=== PATIENT | male | born 1980 | race Caucasian/White ===

== ENCOUNTER 2017-06-20 04:31 | Inpatient (IN) | payer BC, OTHER ==
[2017-06-20] MEDS ORDERED: LOPRESSOR 5 MG/5 ML INJECTION IV ONE ×2 (04:43→04:49)
[2017-06-20] MEDS ORDERED: Sodium Chloride 0.9% 1000 ML 1,000 ML IV SCH (04:45)
[2017-06-20] MEDS ORDERED: Ativan 2 MG/1 ML VIAL IV ONE (04:45)
[2017-06-20 04:48] LABS: Eosinophil % 3.3 % (0.00-5.0); Lymphocytes % 28.3 % (24.0-44.0); Mean Cell Volume 84.6 fl (78-100); Mean Corpuscular Hemoglobin 29.2 pg (26-32); Mean Platelet Volume 10.7 fl (6-9.5); Monocytes % 7.4 % (0.0-12.0); Platelet Count 204 K/mm3 (150-450); Red Blood Count 5.85 M/mm3 (4.1-5.6); White Blood Count 6.9 K/mm3 (4.0-10.5)
[2017-06-20] MEDS ORDERED: Ativan 2 MG/1 ML VIAL ONE (04:49)
--- NOTE | 2017-06-20 04:51 | ERPHSYRPT ---
- History of Present Illness Time Seen by Provider: 06/20/17 04:41 Source: patient, family Exam Limitations: no limitations Patient Subjective Stated Complaint: pt states at 2300 last night he was playing a game on his computer when he became short of breath -was then able to go to sleep and then again she am he is short of breath denies pain denies numbness or tingling pos diaphoretic Triage Nursing Assessment: pt is awake and alert and able to answer questions apprears anxious and states she can't get a deep breath although he is speaking in full sentences Physician History: patient developed SOB and couldn't catch his breath while playing a computer game tonight; lasted about 30 min; resolved and then returned; no prior hx; no CP ; no trauma; no travel; no N&V some palpatations; no syncope; no fever or sore throat; no medical hx; enies excess caffeine; no stress; denies drugs or alcohol; otherwise healthy; can't take a deep breath; no cough; no leg pain; sleeping and eating ok Timing/Duration: today (x 1 hr), yesterday (11 pm x 30 min), intermittent, sudden, worse Activities at Onset: activity (playing computer game) Severity of Dyspnea-Max: severe Severity of Dyspnea-Current: severe Possible Cause: no prior episodes (before today) Modifying Factors: Improves With: other (playing computer game) Associated Symptoms: intermittent, heart racing International travel in last 2 weeks: No Allergies/Adverse Reactions: No Known Drug Allergies Allergy (Unverified 06/20/17 04:46) Home Medications: No Reportable Medications [No Reported Medications] 06/20/17 [History] - Review of Systems Constitutional: No Symptoms Eyes: No Symptoms Ears, Nose, & Throat: No Symptoms Respiratory: Dyspnea, No Cough, No Cyanosis, No Wheezing Cardiac: Chest Pain, Palpitations, No Edema, No Syncope Abdominal/Gastrointestinal: No Abdominal Pain, No Nausea, No Vomiting, No Diarrhea Genitourinary Symptoms: No Symptoms Musculoskeletal: No Symptoms Skin: No Symptoms Neurological: No Symptoms Psychological: No Symptoms Endocrine: No Symptoms Hematologic/Lymphatic: No Symptoms Immunological/Allergic: No Symptoms - Past Medical History Pertinent Past Medical History: No Cardiac History: No Pertinent History Respiratory History: No Pertinent History GI Medical History: No Pertinent History History: No Pertinent History Psycho-Social History: No Pertinent History - Past Surgical History Past Surgical History: No - Social History Smoking Status: Current every day smoker Exposure to second hand smoke: Yes Alcohol Use: Socially Drug Use: none Patient Lives Alone: No Significant Family History: no pertinent family hx - Nursing Vital Signs Nursing Vital Signs: Initial Vital Signs Pulse Rate 112 H 06/20/17 04:40 Respiratory Rate 24 06/20/17 04:40 Blood Pressure 160/130 06/20/17 04:40 O2 Sat by Pulse Oximetry 99 06/20/17 04:40 Pain Scale Pain Intensity 0 - Physical Exam General Appearance: moderate distress, alert, anxiety Eye Exam: PERRL/EOMI, eyes nml inspection, No photophobia Ears, Nose, Throat Exam: hearing grossly normal, normal ENT inspection, normal pharynx, No nasal congestion Neck Exam: normal inspection, non-tender, supple, full range of motion, No meningismus, No carotid bruit, No JVD, No thyromegaly Respiratory Exam: lungs clear, respiratory distress (tachypnea; shallow respirations), airway intact, diminished breath sounds, other (shallow rapid respirations), No chest tenderness, No crackles/rales, No rhonchi, No wheezing, No pleural rub Cardiovascular/Chest Exam: normal heart sounds, regular rate/rhythm, normal peripheral pulses, tachycardia (114), No murmur, No edema, No JVD Abdominal/Gastrointestinal Exam: soft, normal bowel sounds, No tenderness, No mass, No guarding, No rebound, No organomegaly Rectal Exam: deferred Extremity Exam: non-tender, normal range of motion, normal inspection, normal capillary refill, no calf tenderness, no pedal edema Peripheral Pulses Exam: carotid (R): 4+, carotid (L): 4+, femoral (R): 4+, femoral (L): 4+, dorsalis-pedis (R): 3+, dorsalis-pedis (L): 3+ Neurologic Exam: alert, oriented x 3, cooperative, fruit preserver II-XII nml as tested, nml cerebellar function, nml station & gait, sensation nml, No normal mood/ affect (anxious and hyperventilation) Skin Exam: normal color, warm, No dry (clammy), No rash, No petechiae, No cyanosis Lymphatic Exam: No adenopathy SpO2 Interpretation: normal SpO2: 94 Oxygen Delivery: Room Air - Course Nursing assessment & vital signs reviewed: Yes EKG Interpreted by Me: RATE (111), Sinus Tach, Right [place] Deviation, NORMAL INTERVALS, Right Bundle Branch Block (incomplete), NORMAL ST-T, Other (poor R wave progression V1-V4) Rhythm Strip: Rate (112), Sinus Tachycardia - Radiology Exams Chest X-ray Interpretation: Interpreted by me, No Pneumothorax, Nml Heart Size, Infiltrates (bilateral interstitial patchy R>L) Ordered Tests: Active Orders 24 hr Category Date Time Status Bedrest ROUTINE Activity 06/20/17 06:41 Ordered Up With Assistance TOLERATED Activity 06/20/17 06:41 Ordered Admission/Status Order ROUTINE Care 06/20/17 06:42 Ordered Call Admit Doctor for Orders ROUTINE Care 06/20/17 06:41 Ordered Entry Level Truck Driver STAT Care 06/20/17 04:41 Active Clean Catch Urine Specimen STAT Care 06/20/17 06:37 Active Code Status Order ROUTINE Care 06/20/17 06:42 Ordered EKG-ER Only STAT Care 06/20/17 04:41 Active EKG-ER Only STAT Care 06/20/17 06:27 Active IV Care Q6H Care 06/20/17 06:42 Ordered IV Insertion STAT Care 06/20/17 04:41 Active IV Insertion-2nd Peripheral STAT Care 06/20/17 05:33 Active Implement CHF Pathway ROUTINE Care 06/20/17 06:42 Ordered Oxygen-ED Only NASAL CANNULA 2 lpm Care 06/20/17 06:08 Active Pulse Oximetry (ED) STAT Care 06/20/17 04:41 Active Telemetry ROUTINE Care 06/20/17 06:41 Ordered Weight,Daily 0600 Care 06/20/17 06:42 Ordered Low Sodium Diet 06/20/17 Breakfast Ordered CHEST 1 VIEW (PORTABLE) Stat Exams 06/20/17 04:41 Taken CHEST WITH CONTRAST [CT] Stat Exams 06/20/17 05:18 Taken ECHO W/2D AND DOPPLER [US] Routine Exams 06/20/17 06:44 Ordered ARTERIAL BLOOD GASES Stat Lab 06/20/17 05:08 Completed BLOOD CULTURE Stat Lab 06/20/17 05:28 Received BMP AM.LAB Lab 06/21/17 04:00 Ordered CBC AM.LAB Lab 06/21/17 04:00 Ordered CBC W DIFF Stat Lab 06/20/17 04:48 Completed CMP Stat Lab 06/20/17 04:48 Completed D-DIMER QUANTITATION Stat Lab 06/20/17 04:48 Completed Lactic Acid Stat Lab 06/20/17 05:08 Completed MAGNESIUM Stat Lab 06/20/17 04:48 Completed NT PRO BNP AM.LAB Lab 06/21/17 04:00 Ordered NT PRO BNP Stat Lab 06/20/17 04:48 Completed PROTIME WITH INR Stat Lab 06/20/17 04:48 Completed TROPONIN Q3H Lab 06/20/17 04:48 Completed TROPONIN Q3H Lab 06/20/17 07:45 Ordered TROPONIN Q3H Lab 06/20/17 10:45 Ordered TROPONIN Q3H Lab 06/20/17 13:45 Ordered TROPONIN Q3H Lab 06/20/17 16:45 Ordered UA W/RFX UR CULTURE Stat Lab 06/20/17 06:15 Completed Urine Triage Profile Stat Lab 06/20/17 06:15 Completed EKG IN AM RT 06/21/17 06:00 Ordered Oxygen NASAL CANNULA 2 lpm RT 06/20/17 06:42 Ordered Peak Expiratory Flow Rate ONCE RT 06/20/17 05:08 Completed Pulse Oximetry OVERNIGHT RT 06/20/17 06:44 Ordered Respiratory Nebulizer STAT RT 06/20/17 05:09 Completed Transfer Order Routine Transfer 06/20/17 06:41 Ordered Medication Summary Generic Name Dose Route Start Last Admin Trade Name Freq PRN Reason Stop Dose Admin Enoxaparin Sodium 110 mg 06/20/17 05:30 06/20/17 05:27 Enoxaparin Sodium SQ 07/20/17 05:29 110 mg Q12H BRET Administration Sodium Chloride 1,000 mls @ 100 mls/hr 06/20/17 04:45 06/20/17 05:03 Sodium Chloride 0.9% 1000 Ml IV 07/20/17 04:44 100 mls/hr .Q10H BRET Administration Discontinued Medications Generic Name Dose Route Start Last Admin Trade Name Freq PRN Reason Stop Dose Admin Albuterol/Ipratropium 3 ml 06/20/17 05:08 06/20/17 05:13 Duoneb 0.5-3 Mg/3 Ml Neb IH 06/20/17 05:09 3 ml STAT ONE Administration Albuterol/Ipratropium Confirm 06/20/17 05:11 Duoneb 0.5-3 Mg/3 Ml Neb Administered 06/20/17 05:12 Dose 3 ml IH .STK-MED ONE Aspirin 324 mg 06/20/17 06:25 06/20/17 06:33 Baby Aspirin 81 Mg Chew PO 06/20/17 06:26 324 mg STAT ONE Administration Aspirin Confirm 06/20/17 06:27 Baby Aspirin 81 Mg Chew Administered 06/20/17 06:28 Dose 324 mg .ROUTE .STK-MED ONE Captopril 25 mg 06/20/17 06:25 06/20/17 06:33 Captopril 25 Mg PO 06/20/17 06:26 25 mg STAT ONE Administration Captopril Confirm 06/20/17 06:28 Captopril 25 Mg Administered 06/20/17 06:29 Dose 25 mg .ROUTE .STK-MED ONE Lorazepam 1 mg 06/20/17 04:45 06/20/17 05:04 Ativan 2 Mg/1 Ml Vial IV 06/20/17 04:46 1 mg STAT ONE Administration Lorazepam Confirm 06/20/17 04:49 Ativan 2 Mg/1 Ml Vial Administered 06/20/17 04:50 Dose 2 mg .ROUTE .STK-MED ONE Metoprolol Tartrate 5 mg 06/20/17 04:43 06/20/17 05:04 Lopressor 5 Mg/5 Ml Injection IV 06/20/17 04:44 5 mg STAT ONE Administration Metoprolol Tartrate Confirm 06/20/17 04:49 Lopressor 5 Mg/5 Ml Injection Administered 06/20/17 04:50 Dose 5 mg IV .STK-MED ONE Nitroglycerin 1 gm 06/20/17 06:26 06/20/17 06:33 Nitro-Bid 2% Ud Packets TOP 06/20/17 06:27 1 gm STAT ONE Administration Nitroglycerin Confirm 06/20/17 06:27 Nitro-Bid 2% Ud Packets Administered 06/20/17 06:28 Dose 1 gm .ROUTE .STK-MED ONE Lab/Rad Data: Laboratory Result Diagrams 06/20/17 04:48 06/20/17 04:48 Laboratory Results 08/06/17 08/06/17 08/06/17 Range/Units 06:15 06:15 05:25 WBC (4.0-10.5) K/mm3 RBC (4.1-5.6) M/mm3 Hgb (12.5-18.0) gm/dl Hct (42-50) % MCV (78-100) fl MCH (26-32) pg MCHC (32-36) g/dl RDW (11.5-14.0) % Plt Count (150-450) K/mm3 MPV (6-9.5) fl Gran % (36.0-66.0) % Lymphocytes % (24.0-44.0) % Monocytes % (0.0-12.0) % Eosinophils % (0.00-5.0) % Basophils % (0.0-0.4) % Basophils # (0-0.4) INR (0.8-3.0) D-Dimer (0-500) ng/mL Puncture Site pCO2 (35-45) mmHg pO2 (75-100) mmHg Base Excess (-2.0-2.0) O2 Saturation (94-100) g/dF ABG pH (7.35-7.45) ABG HCO3 (22-28) ABG O2 Sat (Measured) (95-100) % Dylan Test A-a Gradient a/A Ratio Hemoglobin Carboxyhemoglobin (0.0-6.9) % THgb Methemoglobin (1.4-1.5) % Temperature C POC O2 Flow Rate % Sodium (136-145) mEq/L Potassium (3.5-5.1) mEq/L Chloride (98-107) mEq/L Carbon Dioxide (21-32) mEq/L Anion Gap (5-15) MEQ/L BUN (9-20) mg/dL Creatinine (0.55-1.30) mg/dl Estimated GFR ML/MIN Glucose (70-110) MG/DL Lactic Acid (0.4-2.0) Calcium (8.5-10.1) mg/dL Magnesium (1.8-2.4) mg/dL Total Bilirubin (0.2-1.0) mg/dL AST (15-37) U/L ALT (12-78) U/L Alkaline Phosphatase (46-116) U/L Troponin I (0.000-0.056) ng/ml NT-Pro-B Natriuret Pep (0-125) pg/ml Serum Total Protein (6.4-8.2) gm/dL Albumin (3.4-5.0) g/dL Ur Collection Type VOID Urine Color YELLOW (YELLOW) Urine Appearance CLEAR (CLEAR) Urine pH 6.0 (5-6) Ur Specific [place] 10.010 (1.005-1.025) Urine Protein NEGATIVE (Negative) Urine Ketones NEGATIVE (NEGATIVE) Urine Blood NEGATIVE (0-5) Guero/ul Urine Nitrite NEGATIVE (NEGATIVE) Urine Bilirubin NEGATIVE (NEGATIVE) Urine Urobilinogen NORMAL (0-1) mg/dL Ur Leukocyte Esterase NEGATIVE (NEGATIVE) Urine Glucose NEGATIVE (NEGATIVE) mg/dL Urine Opiates Level NEG. (NEGATIVE) Ur Methadone NEG. (NEGATIVE) Urine Barbiturates NEG. (NEGATIVE) Ur Phencyclidine (PCP) NEG. (NEGATIVE) Urine Amphetamine NEG. (NEGATIVE) U Benzodiazepine Level NEG. (NEGATIVE) Urine Cocaine NEG. (NEGATIVE) Urine Marijuana (THC) NEG. (NEGATIVE) Influenza Type A Ag NEGATIVE (NEGATIVE) Influenza Type B Ag NEGATIVE (NEGATIVE) RSV (PCR) NEGATIVE (Negative) Specimen Received 06/20/2017 0625 06/20/17 06/20/17 06/20/17 Range/Units 05:08 04:48 04:48 WBC (4.0-10.5) K/mm3 RBC (4.1-5.6) M/mm3 Hgb (12.5-18.0) gm/dl Hct (42-50) % MCV (78-100) fl MCH (26-32) pg MCHC (32-36) g/dl RDW (11.5-14.0) % Plt Count (150-450) K/mm3 MPV (6-9.5) fl Gran % (36.0-66.0) % Lymphocytes % (24.0-44.0) % Monocytes % (0.0-12.0) % Eosinophils % (0.00-5.0) % Basophils % (0.0-0.4) % Basophils # (0-0.4) INR 1.04 (0.8-3.0) D-Dimer 1614 H* (0-500) ng/mL Puncture Site LEFT BRACHIAL pCO2 30 L (35-45) mmHg pO2 75 (75-100) mmHg Base Excess -0.6 (-2.0-2.0) O2 Saturation 92.7 L (94-100) g/dF ABG pH 7.47 H (7.35-7.45) ABG HCO3 21.8 L (22-28) ABG O2 Sat (Measured) 99.1 (95-100) % Dylan Test YES A-a Gradient 37 a/A Ratio 0.67 Hemoglobin 17.2 Carboxyhemoglobin 5.6 (0.0-6.9) % THgb Methemoglobin 0.8 L (1.4-1.5) % Temperature 37.0 C POC O2 Flow Rate 21 % Sodium (136-145) mEq/L Potassium 4.0 (3.5-5.1) mEq/L Chloride (98-107) mEq/L Carbon Dioxide (21-32) mEq/L Anion Gap (5-15) MEQ/L BUN (9-20) mg/dL Creatinine (0.55-1.30) mg/dl Estimated GFR ML/MIN Glucose (70-110) MG/DL Lactic Acid 0.9 (0.4-2.0) Calcium (8.5-10.1) mg/dL Magnesium (1.8-2.4) mg/dL Total Bilirubin (0.2-1.0) mg/dL AST (15-37) U/L ALT (12-78) U/L Alkaline Phosphatase (46-116) U/L Troponin I 0.024 (0.000-0.056) ng/ml NT-Pro-B Natriuret Pep (0-125) pg/ml Serum Total Protein (6.4-8.2) gm/dL Albumin (3.4-5.0) g/dL Ur Collection Type Urine Color (YELLOW) Urine Appearance (CLEAR) Urine pH (5-6) Ur Specific [place] (1.005-1.025) Urine Protein (Negative) Urine Ketones (NEGATIVE) Urine Blood (0-5) Guero/ul Urine Nitrite (NEGATIVE) Urine Bilirubin (NEGATIVE) Urine Urobilinogen (0-1) mg/dL Ur Leukocyte Esterase (NEGATIVE) Urine Glucose (NEGATIVE) mg/dL Urine Opiates Level (NEGATIVE) Ur Methadone (NEGATIVE) Urine Barbiturates (NEGATIVE) Ur Phencyclidine (PCP) (NEGATIVE) Urine Amphetamine (NEGATIVE) U Benzodiazepine Level (NEGATIVE) Urine Cocaine (NEGATIVE) Urine Marijuana (THC) (NEGATIVE) Influenza Type A Ag (NEGATIVE) Influenza Type B Ag (NEGATIVE) RSV (PCR) (Negative) Specimen Received 06/20/17 06/20/17 Range/Units 04:48 04:48 WBC 6.9 (4.0-10.5) K/mm3 RBC 5.85 H (4.1-5.6) M/mm3 Hgb 17.1 (12.5-18.0) gm/dl Hct 49.5 (42-50) % MCV 84.6 (78-100) fl MCH 29.2 (26-32) pg MCHC 34.5 (32-36) g/dl RDW 14.0 (11.5-14.0) % Plt Count 204 (150-450) K/mm3 MPV 10.7 H (6-9.5) fl Gran % 60.0 (36.0-66.0) % Lymphocytes % 28.3 (24.0-44.0) % Monocytes % 7.4 (0.0-12.0) % Eosinophils % 3.3 (0.00-5.0) % Basophils % 1.0 (0.0-0.4) % Basophils # 0.07 (0-0.4) INR (0.8-3.0) D-Dimer (0-500) ng/mL Puncture Site pCO2 (35-45) mmHg pO2 (75-100) mmHg Base Excess (-2.0-2.0) O2 Saturation (94-100) g/dF ABG pH (7.35-7.45) ABG HCO3 (22-28) ABG O2 Sat (Measured) (95-100) % Dylan Test A-a Gradient a/A Ratio Hemoglobin Carboxyhemoglobin (0.0-6.9) % THgb Methemoglobin (1.4-1.5) % Temperature C POC O2 Flow Rate % Sodium 142 (136-145) mEq/L Potassium 3.8 (3.5-5.1) mEq/L Chloride 107 (98-107) mEq/L Carbon Dioxide 26.7 (21-32) mEq/L Anion Gap 11.7 (5-15) MEQ/L BUN 11 (9-20) mg/dL Creatinine 1.09 (0.55-1.30) mg/dl Estimated GFR > 60 ML/MIN Glucose 103 (70-110) MG/DL Lactic Acid (0.4-2.0) Calcium 8.6 (8.5-10.1) mg/dL Magnesium 1.7 L (1.8-2.4) mg/dL Total Bilirubin 0.60 (0.2-1.0) mg/dL AST 27 (15-37) U/L ALT 36 (12-78) U/L Alkaline Phosphatase 60 (46-116) U/L Troponin I (0.000-0.056) ng/ml NT-Pro-B Natriuret Pep 1618 H (0-125) pg/ml Serum Total Protein 7.0 (6.4-8.2) gm/dL Albumin 4.1 (3.4-5.0) g/dL Ur Collection Type Urine Color (YELLOW) Urine Appearance (CLEAR) Urine pH (5-6) Ur Specific [place] (1.005-1.025) Urine Protein (Negative) Urine Ketones (NEGATIVE) Urine Blood (0-5) Guero/ul Urine Nitrite (NEGATIVE) Urine Bilirubin (NEGATIVE) Urine Urobilinogen (0-1) mg/dL Ur Leukocyte Esterase (NEGATIVE) Urine Glucose (NEGATIVE) mg/dL Urine Opiates Level (NEGATIVE) Ur Methadone (NEGATIVE) Urine Barbiturates (NEGATIVE) Ur Phencyclidine (PCP) (NEGATIVE) Urine Amphetamine (NEGATIVE) U Benzodiazepine Level (NEGATIVE) Urine Cocaine (NEGATIVE) Urine Marijuana (THC) (NEGATIVE) Influenza Type A Ag (NEGATIVE) Influenza Type B Ag (NEGATIVE) RSV (PCR) (Negative) Specimen Received reviewed - Progress Progress: improved (after IV fluids, meds and duoneb ), re-examined (after meds) Air Movement: fair (after meds and duonebs), poor Progress Note: 06/20/17 05:01 IV started; EKG sinus tach with ICRBBB; CBC wnl; mildly hypertensive and tachypnic with sats 94% on RA; very anxious and hyperventilating; will medicate; CXR pending; will give duoneb and peak flow 06/20/17 05:13 recheck significant other at bedside; patient denies any travel ; was visiting a local friend with chickens; able to take slightly deeper breaths; still not able to ascertain BS well; no whisper pectoriloquiy but some EA eughophony changes; CXR shows significant bilateral patchy interstitial infiltrates R>L 06/20/17 05:17 D Dimer elevated at [address] to ro PE and treat prophylaxis for PE with Lovenox 06/20/17 05:20 06/20/17 05:28 renal function ok to proceed with CT; bs 103; BMP ok ;liver labs ok; Mg++ low at 1.7; sats dropped to 89% on RA at one point so will place on O2 after duoneb treatment; he has had the lovenox 06/20/17 05:[address]; Trop 0.024; ABG pending; Duoneb in process 06/20/17 05:53 ABG shows Ph. 7.47; pCO2 = 30; pO2 = 75 HCO3 = 21.8; HGB O2 sat = 92.7; on RA; will place on O2; Lactic acid 0.9; CT result pending 06/20/17 06:[address] and completed his Duoneb; VS improved; feeling better; moving air better; Sats improved. CT results pending; will monitor and recheck 06/20/17 06:12 pulse ox now 96% on 2 l nc;VS improved 06/20/17 06:28 CT negative for PE; but with changes suggestive of Pulmonary Edema or atypical multifocal pnuemonia; pBNP elevated at 1618; will treat with baby ASA; NTG and captopril; monnitor and recheck and consult Dr Vicente Dong for disposition He was consulted adn accepted the patient for admission Blood Culture(s) Obtained: Yes Discussed with : Mavis (consulted and will admit) Will see patient in: hospital (full admit) Counseled pt/family regarding: lab results, diagnosis, need for follow-up, rad results - Departure Time of Disposition: 06:38 Departure Disposition: In-patient Admission (ICU) Clinical Impression: CHF (congestive heart failure), Pulmonary edema cardiac cause, Elevated d-dimer , Elevated brain natriuretic peptide (BNP) level, Sinus tachycardia by electrocardiogram, Incomplete right bundle branch block (RBBB), Hypertension, possible non-stemi DE Condition: Serious Critical Care Time: Yes Critical Care Time(excluding separately billable procedures): 30-74 minutes Referrals: DOCTOR,NO FAMILY [Primary Care Provider] - ETRESSA DONG [ACTIVE STAFF] - Instructions: Heart Failure
[2017-06-20 05:08] LABS: INR 1.04 (0.8-3.0); PROTIME 11.7 SECONDS (8.83-12.87)
[2017-06-20] MEDS ORDERED: DUONEB 0.5-3 MG/3 ml Neb IH ONE ×2 (05:08→05:11)
[2017-06-20 05:24] LABS: ALBUMIN 4.1 g/dL (3.4-5.0); ALKALINE PHOSPHATASE 60 U/L (46-116); ANION GAP 11.7 MEQ/L (5-15); BLOOD UREA NITROGEN 11 mg/dL (9-20); CHLORIDE 107 mEq/L (98-107); Carbon Dioxide 26.7 mEq/L (21-32); Glucose 103 MG/DL (70-110); MAGNESIUM 1.7 mg/dL (1.8-2.4); Potassium 3.8 mEq/L (3.5-5.1); SGOT/AST 27 U/L (15-37); SGPT/ALT 36 U/L (12-78); SODIUM 142 mEq/L (136-145)
[2017-06-20] MEDS: ENOXAPARIN SODIUM SQ SCH ×2 (05:27→17:42)
[2017-06-20 05:49] LABS: A-aADO2 37; ALLEN TEST OK? YES; ARTERIAL BLD GAS O2 SATURATION 99.1 % (95-100); ARTERIAL BLOOD GAS BASE EXCESS -0.6 (-2.0-2.0); ARTERIAL BLOOD GAS FIO2 21 %; ARTERIAL BLOOD GAS PO2 75 mmHg (75-100); ARTERIAL BLOOD GAS pH 7.47 (7.35-7.45); Lactic Acid 0.9 (0.4-2.0)
[2017-06-20] MEDS ORDERED: CAPTOPRIL 25 MG PO ONE (06:25)
[2017-06-20] MEDS ORDERED: BABY ASPIRIN 81 MG CHEW PO ONE (06:25)
[2017-06-20] MEDS ORDERED: NITRO-BID 2% UD PACKETS TOP ONE (06:26)
[2017-06-20] MEDS ORDERED: BABY ASPIRIN 81 MG CHEW ONE (06:27)
[2017-06-20] MEDS ORDERED: NITRO-BID 2% UD PACKETS ONE (06:27)
[2017-06-20] MEDS ORDERED: CAPTOPRIL 25 MG ONE (06:28)
[2017-06-20 06:32] LABS: Collection Type VOID
[2017-06-20 06:33] LABS: ADD URINE CULTURE? NO (NO); Bilirubin NEGATIVE (NEGATIVE); Blood NEGATIVE Ery/ul (0-5); COMPLETE URINE MICROSCOPIC? NO; Glucose NEGATIVE (NEGATIVE); Leukocyte Esterase NEGATIVE (NEGATIVE)
[2017-06-20] MEDS ORDERED: Lasix 40 MG/4 ML ONE (06:48)
[2017-06-20] MEDS ORDERED: Lasix 20 MG/2 ML IV ONE (06:53)
[2017-06-20] MEDS ORDERED: Lasix 40 MG/4 ML IV ONE (06:54)
[2017-06-20] MEDS ORDERED: LASIX 20 MG PO SCH (10:00)
[2017-06-20] MEDS ORDERED: CAPTOPRIL 25 MG PO SCH (10:00)
[2017-06-20] MEDS: Klor Con 10 MEQ PO SCH ×3 (10:22→21:41)
[2017-06-20] MEDS: Lasix 20 MG/2 ML IV SCH ×2 (10:23→17:43)
[2017-06-20] MEDS: Lopressor 25MG Tab PO SCH ×2 (10:23→21:41)
--- NOTE | 2017-06-20 10:27 | XRAY ---
Indication: Short of breath, decreased O2 saturation, tachycardia, and elevated d-dimer. Multiple contiguous axial images obtained through the chest using 80 cc Isovue 370 contrast and PE protocol. Comparison: None There is good opacification of the pulmonary arteries. However respiration artifact limits evaluation of the segmental and more distal branches. No large central pulmonary embolus. Heart is not enlarged. Aorta is normal in course and caliber. Right hilar calcified node. No pathologic mediastinal/hilar lymphadenopathy. Examination of the lung parenchyma demonstrates mild diffuse patchy airspace opacities bilaterally, minimal bibasilar dependent atelectasis, and right lower lobe calcified granuloma. No consolidation or large effusion. Bony thorax intact. Limited upper abdomen demonstrates 13 cm splenomegaly and mild fatty liver. Impression: 1. Respiration artifact. No central pulmonary embolus. 2. Multifocal bilateral patchy airspace disease. 3. Incidental fatty liver, splenomegaly, and evidence for old granulomatous disease. Comment: Preliminary interpretation was made by [facility]. No critical discrepancy. CTDI 23.68
--- NOTE | 2017-06-20 10:29 | XRAY ---
Indication: Short of breath. Comparison: None Portable chest demonstrates mild diffuse bilateral interstitial alveolar opacities without consolidation or large effusion. Heart is not enlarged for AP portable technique. Bony thorax intact.
[2017-06-20] MEDS: Nicoderm CQ 21 MG TOP SCH (10:56)
--- NOTE | 2017-06-20 11:21 | PCM.HP ---
History of Present Illness - Chief Complaint Chief Complaint: CHF Date: 06/20/17 History of Present Illness: is a 37 year old male. He has a history of smoking 1/2 to 1 ppd of cigarretes but is otherwise healty with no previous health problems. He suddenly became short of breath yesterday evening with no pain or pressure in his chest. He laid down calmed down went to bed but awoke early this am very short of breath and presented to the ED. He was not having any chest pain and has not had any chest pain or exercise intolerence. He does not drink alcohol and has not had any recent illness. he has not had any difficulty with swelling. He has no known congenital heart problems. His father has history of coronary artery disease and htn starting in his late 50's and follows with Dr. Blanc. He has not had any travel. He had no palpitations prior to this. He sometimes takes a multivitamin but denies any other supplements. He drinks some coca-cola and Mountain Dew but no energy drinks. He denies rash, fever, chills, coughing or calf pain or tendneress. - Review of Systems Constitutional: No Fever, No Chills Eyes: No Symptoms Ears, Nose, & Throat: No Symptoms Respiratory: Orthopnea, Short Of Breath, No Cough, No Wheezing Cardiac: No Chest Pain, No Edema, No Syncope Abdominal/Gastrointestinal: No Abdominal Pain, No Nausea, No Vomiting, No Diarrhea Genitourinary Symptoms: No Dysuria Musculoskeletal: No Back Pain, No Neck Pain Skin: No Rash Neurological: No Dizziness, No Focal Weakness, No Sensory Changes Psychological: No Symptoms Endocrine: No Symptoms Hematologic/Lymphatic: No Symptoms Immunological/Allergic: No Symptoms Medications & Allergies Home Medications: Home Medication List No Reportable Medications [No Reported Medications] 06/20/17 [History Confirmed 06/20/17] Allergies/Adverse Reactions: Allergies Allergy/AdvReac Type Severity Reaction Status Date / Time No Known Drug Allergies Allergy Unverified 06/20/17 07:39 - Past Medical History Past Medical History: No Neurological History: No Pertinent History ENT History: No Pertinent History Cardiac History: No Pertinent History Respiratory History: No Pertinent History Endocrine Medical History: No Pertinent History Musculoskelatal History: No Pertinent History GI Medical History: No Pertinent History History: No Pertinent History Pyscho-Social History: No Pertinent History Male Reproductive Disorders: No Pertinent History - Past Surgical History Past Surgical History: No Neuro Surgical History: No Pertinent History Cardiac History: No Pertinent History Respiratory Surgery: No Pertinent History GI Surgical History: No Pertinent History Genitourinary Surgical Hx: No Pertinent History Musculskeletal Surgical Hx: No Pertinent History Male Surgical History: No Pertinent History - Social History Smoking Status: Current every day smoker How long have you smoked: 22 years Exposure to second hand smoke: Yes Alcohol: Rarely Drug Use: none Significant Family History: no pertinent family hx - Physical Exam Vital Signs: Vital Signs - 24 hr Temp Pulse Resp BP Pulse Ox 06/20/17 08:57 100 H 18 94 L 06/20/17 08:00 97.1 F 95 H 17 130/82 93 L 06/20/17 07:41 98.1 F 88 17 142/91 94 L 06/20/17 07:08 100 H 20 145/105 96 06/20/17 06:51 94 L 06/20/17 06:46 102 H 154/113 97 06/20/17 06:10 88 20 144/115 96 06/20/17 05:19 98.4 F 88 20 153/113 93 L 06/20/17 05:13 100 H 22 91 L 06/20/17 05:08 98.4 F 06/20/17 05:03 98 H 20 95 06/20/17 04:59 24 99 06/20/17 04:55 104 H 16 160/100 99 06/20/17 04:46 98 06/20/17 04:40 112 H 24 160/130 99 Oxygen-Last 24 hours O2 Percentage 2 Liters = 28% O2 Percentage 2 Liters = 28% O2 Percentage 2 Liters = 28% O2 Percentage 2 Liters = 28% O2 Percentage 2 Liters = 28% O2 Percentage 2 Liters = 28% General Appearance: no apparent distress, alert, obese Neurologic Exam: alert, oriented x 3, cooperative, normal mood/affect, nml cerebellar function, nml station & gait, sensation nml, No motor deficits Eye Exam: PERRL/EOMI, eyes nml inspection Ears, Nose, Throat Exam: normal ENT inspection, pharynx normal, moist mucous membranes Neck Exam: normal inspection, non-tender, supple, full range of motion Respiratory Exam: crackles/rales (bibasilar), No respiratory distress Cardiovascular Exam: regular rate/rhythm, normal heart sounds, normal peripheral pulses, No murmur, No edema Gastrointestinal/Abdomen Exam: soft, normal bowel sounds, No tenderness, No mass Back Exam: normal inspection, normal range of motion, No CVA tenderness, No vertebral tenderness Extremity Exam: normal inspection, normal range of motion, pelvis stable Skin Exam: normal color, warm, dry, No rash Lymphatic Exam: No adenopathy Results - Labs Lab/Micro Results: Lab Results-Last 24 Hours 06/20/17 Range/Units 07:39 Troponin I 0.031 (0.000-0.056) ng/ml - Radiology Impressions Radiology Exams & Impressions: Radiology Procedures Category Date Time Status ECHO W/2D AND DOPPLER [US] Routine Exams 06/20/17 07:37 Ordered - Other Procedures and Tests Respiratory Therapy 06/20/17 06:42 Oxygen NASAL CANNULA 2 lpm 06/21/17 06:00 EKG IN AM Assessment/Plan (1) CHF (congestive heart failure) Current Visit: Yes Status: Acute Assessment & Plan: new onset acute with pulmonary edema check echo nitro paste given in ed start metoprolol 25 mg bid aspirin given in ED continue daily received captopril in ED Start statin check lipids continue trend troponins ekg without ischemic changes noted X2 and no chest pain lasix 20 mg IV q6h repeat bmp this afternoon with the troponin draw check tsh monitor and control blood pressure. Discussed cardiology referral depending on echo results and clinical coarse as inpatient vs outpatient follow up. Patient's father long time patient of Dr. Blanc. Code(s): I50.9 - HEART FAILURE, UNSPECIFIED (2) Hypertension Current Visit: Yes Status: Acute Code(s): I10 - ESSENTIAL (PRIMARY) HYPERTENSION (3) Obesity Current Visit: Yes Status: Acute Code(s): E66.9 - OBESITY, UNSPECIFIED
[2017-06-20] MEDS: NITRO-BID 2% UD PACKETS TOP SCH ×3 (13:14→23:49)
[2017-06-20 14:44] LABS: ANION GAP 12.4 MEQ/L (5-15); BLOOD UREA NITROGEN 14 mg/dL (9-20); CHLORIDE 105 mEq/L (98-107); Glucose 110 MG/DL (70-110); Potassium 4.1 mEq/L (3.5-5.1); SODIUM 140 mEq/L (136-145)
[2017-06-20] MEDS: TYLENOL 325 MG PO PRN (14:49)
[2017-06-20] MEDS: NORCO 5/325 MG PO PRN (17:43)
[2017-06-20] MEDS ORDERED: ZOCOR 20MG PO SCH (22:00)
[2017-06-21] MEDS: NORCO 5/325 MG PO PRN ×2 (04:57→10:13)
[2017-06-21] MEDS: ENOXAPARIN SODIUM SQ SCH (05:01)
[2017-06-21] MEDS: NITRO-BID 2% UD PACKETS TOP SCH (05:02)
[2017-06-21 05:48] LABS: Mean Cell Volume 84.2 fl (78-100); Mean Platelet Volume 11.2 fl (6-9.5); Platelet Count 187 K/mm3 (150-450); Red Blood Count 5.31 M/mm3 (4.1-5.6); Red Cell Distribution Width 13.6 % (11.5-14.0); White Blood Count 9.8 K/mm3 (4.0-10.5)
[2017-06-21 05:49] LABS: ANION GAP 14.6 MEQ/L (5-15); BLOOD UREA NITROGEN 16 mg/dL (9-20); CHLORIDE 104 mEq/L (98-107); Carbon Dioxide 25.2 mEq/L (21-32); Cholesterol 145 mg/dL (100-200); Glucose 112 MG/DL (70-110); LDL, DIRECT 86 mg/dL (5-99); MAGNESIUM 1.5 mg/dL (1.8-2.4); Potassium 3.9 mEq/L (3.5-5.1); SODIUM 140 mEq/L (136-145); TRIGLYCERIDE 78 mg/dL (30-200)
[2017-06-21] MEDS: TYLENOL 325 MG PO PRN (08:01)
[2017-06-21] MEDS: Klor Con 10 MEQ PO SCH (09:49)
[2017-06-21] MEDS: Magnesium 1 Gm / 100 Ml D5W*** 100 ML IV SCH ×2 (09:51→10:34)
[2017-06-21] MEDS ORDERED: Lasix 20 MG/2 ML IV SCH (10:00)
[2017-06-21] MEDS ORDERED: ECOTRIN 81 MG PO SCH (10:00)
[2017-06-21] MEDS ORDERED: Lopressor 50 MG PO SCH (10:00)
[2017-06-21] MEDS: Nicoderm CQ 21 MG TOP SCH (10:23)
--- NOTE | 2017-06-21 12:51 | ECHO ---
Transthoracic echocardiographic examination and color Doppler was done on 06/21/2017. INDICATION: Shortness of breath, hypertension. IMPRESSION: 1) GLOBAL LEFT VENTRICULAR HYPOKINESIA. EJECTION FRACTION AROUND 20%. 2) MODERATELY DILATED LEFT VENTRICLE. 3) TRACE MITRAL REGURGITATION. 4) TRACE TRICUSPID REGURGITATION. RIGHT VENTRICULAR SYSTOLIC PRESSURE OF 23 MM OF MERCURY. 5) LEFT VENTRICULAR DIASTOLIC DYSFUNCTION. 6) LEFT ATRIAL ENLARGEMENT. 7) MILD LEFT VENTRICULAR HYPERTROPHY. The left ventricle is visualized and demonstrated global type of hypokinesia. Ejection fraction around 20%. There is mild left ventricular hypertrophy. The mitral valve is seen and this opens adequately. There is a low flow characteristic suggestive of low cardiac output. There is trace mitral regurgitation. Left atrium is mildly dilated. The aortic valve opens adequately. The right side chambers are normal. There is trace tricuspid regurgitation. The right ventricular systolic pressure of 23 mm of Mercury. Tissue Doppler study of the lateral mitral annulus suggestive of left ventricular diastolic dysfunction.
--- NOTE | 2017-06-21 13:17 | PCM.DCORD ---
- Discharge Discharge Date: 06/21/17 Disposition: Home, Self-Care Condition: Serious Prescriptions: New Aspirin [Aspirin EC] 81 mg PO DAILY #30 tablet. Atorvastatin Calcium 20 mg PO DAILY #30 tablet Potassium Chloride 10 Meq Tab* [Klor Con 10 MEQ] 10 meq PO DAILY #30 tab Furosemide 20 mg [Lasix 20 mg] 20 mg PO DAILY #30 tablet Metoprolol Tartrate 50 mg [Lopressor 50 MG] 50 mg PO BID #60 tablet Lisinopril 5 mg [Zestril 5 MG] 5 mg PO DAILY #30 tablet Instructions: Heart Failure Follow up with: TERESSA DONG [ACTIVE STAFF] - DOCTOR,NO FAMILY [Primary Care Provider] - Forms: Discharge Instructions
[2017-06-21 13:59] VITALS: BP 155/107; PULSE 96; O2SAT 96
--- NOTE | 2017-06-23 12:58 | PCM.DS ---
Discharge Summary Date of Admission: 06/20/17 07:30 Date of Discharge: 06/21/17 Admitting Physician: TERESSA DONG Primary Care Provider: NO FAMILY DOCTOR Allergies Allergies No Known Drug Allergies Allergy (Unverified 06/20/17 07:39) Hospital Summary - Hospital Course Hospital Course: previously healthy young man except tobacco use and smoking with no other known risk factors suddenly became short of breath the night prior to admission and worsened with laying flat. On evaluation he was positive for pulmonary edema and responded well to lasix with resolution of his symptoms. He never had chest pain. He has no recent illnesses toxins or known exposures. His troponins remained low and he was asymptomatic with significant diuresis of about 3L. He had no swelling prior to this. Echo showed EF of 20% and global hypokinesia. His father follows with Dr. Vasquze cardiology and case was discussed with him who will follow up with him as an outpatient. He was given instructions to return immediately for chest pain or worsening shortness of breath. - Vitals & Intake/Output Vital Signs: Vital Signs Temperature 97.8 F 06/21/17 13:55 Pulse Rate 96 H 06/21/17 13:55 Respiratory Rate 12 06/21/17 13:55 Blood Pressure 155/107 06/21/17 13:55 O2 Sat by Pulse Oximetry 96 06/21/17 13:55 Oxygen-Last Documented O2 Percentage 2 Liters = 28% Intake & Output: Intake & Output 06/21/17 06/22/17 06/23/17 06/24/17 11:59 11:59 11:59 11:59 Intake Total 1090 Output Total 4600 Balance -3510 Weight 117.435 kg - Lab Result Diagrams: 06/21/17 05:13 06/21/17 05:13 - Procedures and Test Procedures and Tests throughout Hospitalization: Therapy Orders & Screens 06/20/17 06:42 Oxygen NASAL CANNULA 2 lpm Comment: Diagnosis: Shortness of Breath 06/20/17 08:15 Smoking Cessation Education ONCE Comment: Diagnosis: CHF Smoking Status: Current every day smoker How long have you smoked: 22 years Have you smoked in the past 12 months: Yes Approximately how many cigarettes per day: 20 Do you dip or chew tobacco: No 06/21/17 06:00 EKG IN AM Comment: Diagnosis: Shortness of Breath Discharge Exam General Appearance: no apparent distress, alert Neurologic Exam: alert, oriented x 3, cooperative, normal mood/affect, nml cerebellar function, sensation nml, No motor deficits Skin Exam: normal color, warm, dry Eye Exam: PERRL, EOMI, eyes nml inspection Ears, Nose, Throat Exam: normal ENT inspection, pharynx normal, moist mucous membranes Neck Exam: normal inspection, non-tender, supple, full range of motion Respiratory Exam: normal breath sounds, lungs clear, No respiratory distress Cardiovascular Exam: regular rate/rhythm, normal heart sounds Gastrointestinal/Abdomen Exam: soft, No tenderness, No mass Extremity Exam: normal inspection, normal range of motion Back Exam: normal inspection, normal range of motion, No CVA tenderness, No vertebral tenderness Male Genitalia Exam: deferred Rectal Exam: deferred Final Diagnosis/Problem List - Final Discharge Diagnosis/Problem (1) CHF (congestive heart failure) Status: Acute Assessment & Plan: acute systolic congestive heart failure started asa, lisinopril, metoprolol, statin, lasix, potassium f/u recheck later this week and with Dr. Blanc as scheduled. (2) Hypertension Status: Acute (3) Obesity Status: Acute - Discharge Disposition: Home, Self-Care Condition: Serious Prescriptions: New Aspirin [Aspirin EC] 81 mg PO DAILY #30 tablet.[address] Noonan Calcium 20 mg PO DAILY #30 tablet Potassium Chloride 10 Meq Tab* [Klor Con 10 MEQ] 10 meq PO DAILY #30 tab Furosemide 20 mg [Lasix 20 mg] 20 mg PO DAILY #30 tablet Metoprolol Tartrate 50 mg [Lopressor 50 MG] 50 mg PO BID #60 tablet Lisinopril 5 mg [Zestril 5 MG] 5 mg PO DAILY #30 tablet Instructions: Heart Failure Follow up with: TERESSA DONG [ACTIVE STAFF] - 06/24/17 2:15 pm IGNACIO BLANC [ACTIVE STAFF] - 06/22/17 12:45 pm (bring insurance card and med list) DOCTOR,NO FAMILY [Primary Care Provider] - Forms: Discharge Instructions
== END 2017-06-21 14:32 | disposition home or self-care (01) | DRG 293 ==
LOC: ED 04:31 → OBSVTOIN 07:30 → ICU 07:30
PROVIDERS: ADMIT Family Medicine; ATTEND Family Medicine
DX: I50.21 Acute systolic (congestive) heart failure (principal); I10 Essential (primary) hypertension; E66.9 Obesity, unspecified; Z72.0 Tobacco use; Z79.899 Other long term (current) drug therapy
CPT/HCPCS: 36000; 36415; 36600; 71010; 71260; 80048; 80053; 80061; 80307; 81002; 82375; 82803; 83605; 83721; 83735; 83880; 84443; 84484; 85025; 85027; 85379; 85610; 87040; 87631; 93005; 93041; 93306; 94150; 94640; 94760; 94762; 96360; 96361; 96372; 96374; 96375; 99285; J1650; J1940; J2060; J3475; A9270-GY